=== PATIENT | female | born 1940 | race Caucasian/White ===

== ENCOUNTER 2022-03-25 20:22 | Inpatient (IN) | payer BC ==
[~2022-03-25] VITALS: Ht 165.1 cm; Wt 58.5 kg
--- NOTE | 2022-03-25 11:35 | NUR ---
RN NOTES: RECEIVED CALL FROM ER, SPOKE WITH JOSS/EMILIE, BROUGHT IN VIA AMBULANCE FROM [facility] DUE TO AMS AND DESATURATION 80% RA, A/O TO SELF ONLY, WITH MULTIPLE HEALTH ISSUES KNOWN CASE OF BREAST CA,ON NPO, STARTED ON K REPLACEMENT K LEVEL-2.9.GIVEN 1L OF FLUIDS AND RECEIVED AZITHROMAX AND ROCEPHIN IN ER, SKIN IS INTACT,RAPID TEST IS NEGATIVE Addendum: 03/26/22 at 1718 by JESIKA SMITH RN TIME CORRECTION: REPORT FROM ER RECEIVED AT 3131 NOT [id number].
--- NOTE | 2022-03-25 20:23 | NUR ---
[id number]. ALTERED MENTAL STATUS. LKWT: 1430. REPORTED O2 SAT 80% BY RA ON 4LPM SATTING @ 99% PATIENT RESPONSIVE TO PAIN. CONNECTED PATIENT TO POX AND MONITOR. SAFETY MEASURES IN PLACE
[2022-03-25] MEDS ORDERED: IV NS 0.9% 1,000 ML BAG IV ONE (20:30)
--- NOTE | 2022-03-25 20:33 | NUR ---
RAC #18G S/L BLOOD AND COVID ANTIGEN SWAB COLLECTED AND SENT TO LAB
--- NOTE | 2022-03-25 20:36 | NUR ---
EMT AT BEDSIDE FOR EKG
--- NOTE | 2022-03-25 20:45 | NUR ---
ENERGY RATER AT PT'S BEDSIDE
--- NOTE | 2022-03-25 20:45 | NUR ---
PT TAKEN TO CT VIA IRINEO
[2022-03-25 20:46] LABS: HEMATOCRIT 41 % (33-45); LYMPHOCYTES # (AUTO) 0.6 K/uL (0.8-4.8); LYMPHOCYTES % (AUTO) 3.6 % (20.0-44.0); MEAN CORPUSCULAR HGB CONC 32 g/dl (31.0-36.0); MEAN CORPUSCULAR VOLUME 86 fL (82-100); MONOCYTES # (AUTO) 0.7 K/uL (0.1-1.30); MONOCYTES % (AUTO) 3.8 % (2.0-12.0); NEUTROPHILS % (AUTO) 92.6 % (43.0-81.0); PLATELET COUNT (AUTO) 226 K/uL (150-450); RED BLOOD CELL COUNT(AUTO) 4.74 MIL/uL (4.0-5.2); WHITE BLOOD COUNT (AUTO) 17.3 K/uL (4.3-11.0)
--- NOTE | 2022-03-25 20:52 | NUR ---
PT RETURNED TO ER BED [address]
--- NOTE | 2022-03-25 20:52 | NUR ---
RT AT PT'S BEDSIDE
[2022-03-25 21:05] LABS: ABG PCO2 32.7 mmHg (35.0-45.0); ABG PO2 57.9 mmHg (75.0-100.0); MetHb 0.3 % (0.0-1.5); O2Hb 90.2 % (94.0-97.0); SITE, ABG Right Radial; VENT MODE, BG Room Air
[2022-03-25] MEDS ORDERED: CEFTRIAXONE 1GM BAG (ER ONLY) 50 ML IV ONE ×2 (21:30→21:34)
[2022-03-25] MEDS ORDERED: AZITHROMYCIN 500 MG in IV D5W 250 ML IV ONE (21:30)
--- NOTE | 2022-03-25 21:32 | NUR ---
Updated Dora (Daughter) [phone]
[2022-03-25] MEDS ORDERED: AZITHROMYCIN 500 MG VIAL ONE (21:34)
--- NOTE | 2022-03-25 21:41 | NUR ---
PCR COVID SWAB COLLECTED AND SENT TO LAB
--- NOTE | 2022-03-25 21:45 | NUR ---
CRITICAL: LAZARA 2.03 MD MADE AWARE
--- NOTE | 2022-03-25 22:00 | NUR ---
LARGE BM NOTED. PT KEPT CLEAN AND DRY. SKIN INTACT.
--- NOTE | 2022-03-25 22:07 | NUR ---
URINE COLLECTED AND SENT TO LAB
[2022-03-25 22:11] LABS: BAND % (MANUAL) 7 % (0.0-5.0); LYMPHOCYTES % (MANUAL) 3 % (16-48); MONOCYTES % (MANUAL) 3 % (0-11.0); NEUTROPHILS % (MANUAL) 87 (42-76)
--- NOTE | 2022-03-25 22:27 | NUR ---
KACEY LAWRENCE MATERIALS DEVELOPMENT ENGINEER AT PT BEDSIDE
[2022-03-25 22:41] LABS: ALANINE AMINOTRANSFERASE 38 U/L (12-78); ALBUMIN 3.3 g/dL (3.4-5.0); ALKALINE PHOSPHATASE 123 U/L (46-116); BILIRUBIN,DIRECT 0.2 mg/dL (0.0-0.2); BILIRUBIN,TOTAL 0.8 mg/dL (0.2-1.0); CARBON DIOXIDE 30 mmol/L (21-32); CHLORIDE 99 mmol/L (98-107); CREATININE 1.3 mg/dL (0.6-1.3); GLUCOSE 145 mg/dL (74-106); POTASSIUM 2.9 mmol/L (3.5-5.1); SODIUM SERUM 137 mmol/L (136-145); TOTAL PROTEIN, SERUM 7.9 g/dL (6.4-8.2); UREA NITROGEN, BLOOD 21 mg/dL (7-18)
[2022-03-25] MEDS ORDERED: LETR2.5T PO (22:48)
[2022-03-25] MEDS ORDERED: MAGN400T30 PO (22:48)
[2022-03-25] MEDS ORDERED: GABA-532 PO (22:48)
[2022-03-25] MEDS ORDERED: FERR325T23 PO (22:48)
[2022-03-25] MEDS ORDERED: LOSA1TAB15 PO (22:48)
[2022-03-25] MEDS ORDERED: HYDR-3976 PO (22:48)
[2022-03-25] MEDS ORDERED: CYPR4TAB44 PO (22:48)
[2022-03-25 22:56] LABS: ASPARTATE AMINOTRANSFERASE 34 U/L (15-37); CALCIUM, SERUM 9.1 mg/dL (8.5-10.1)
[2022-03-25] MEDS ORDERED: ACETAMINOPHEN 325 MG TABLET PO PRN (23:00)
[2022-03-25] MEDS ORDERED: MAGNESIUM HYDROXIDE 30 ML UDC PO PRN (23:00)
[2022-03-25] MEDS ORDERED: ZOLPIDEM TARTRATE 5 MG TABLET PO PRN (23:00)
[2022-03-25] MEDS ORDERED: ONDANSETRON HCL/PF 4 MG/2 ML VIAL IVP PRN (23:00)
[2022-03-25] MEDS ORDERED: MAG HYDROX/AL HYDROX/SIMETH 30 ML UDC PO PRN (23:00)
[2022-03-25] MEDS ORDERED: Z GUARD REMEDY 4 OZ OINT TP PRN (23:00)
[2022-03-25] MEDS ORDERED: POTASSIUM CHLORIDE 10 MEQ/50 ML PREMIXED IVPB FOR PERIPHERAL LINE IV ONE (23:00)
[2022-03-25] MEDS ORDERED: POTASSIUM CL. PREMIX PERIPHER. 100 ML ONE (23:12)
--- NOTE | 2022-03-25 23:17 | NUR ---
INITITATED POTASSIUM 10MEQ (BAG 1/) @ 50ML/HR TO RAC #18G S/L
--- NOTE | 2022-03-25 23:34 | NUR ---
Updated Dora (Daughter) [phone] on PT transferring to [facility]. Full Code per Dora WHITNEY
--- NOTE | 2022-03-25 23:41 | NUR ---
Rochelle valle in [facility] - 03/26/22 at 0041 by NAVEEN GAVE REPORT TO SANA KENNEDY
--- NOTE | 2022-03-25 23:41 | NUR ---
REPORT GIVEN TO JESIKA MERCADO RN FOR JAYLAN
[2022-03-25 23:43] LABS: BILIRUBIN,URINE NEGATIVE (NEGATIVE); COLOR,URINE YELLOW (YELLOW); LEUKOCYTE ESTERASE ,URINE NEGATIVE (NEGATIVE); NITRITE, URINE NEGATIVE (NEGATIVE); PROTEIN,URINE NEGATIVE (NEGATIVE); UGLUCOSE NEGATIVE (NEGATIVE); UROBILINOGEN,URINE 0.2 EU/dL (0.2)
[2022-03-25 23:56] LABS: BACTERIA,URINE Rare /HPF (None Seen); RBC,URINE 0-2 /HPF (0-2); SQUAMOUS EPITHELIAL CELL,UR Few /HPF (None Seen); WBC,URINE 0-2 /HPF (0-3)
--- NOTE | 2022-03-26 00:17 | NUR ---
POTASSIUM 10MEQ (BAG 2/4) @ 50ML/HR TO RAC #18G S/L.
--- NOTE | 2022-03-26 00:40 | NUR ---
RN NOTES: -RECEIVED ER ENDORSEMENT FROM JOSS/RN AT 2335 -PATIENT BROUGHT IN FROM ER TO O VIA GURNEY ACCOMPANIED BY 2 STAFF ON TELE MONITOR, WITH O2 INHALATION AT 3-4L/MIN VIA NC, NON VERBAL SINCE ARRIVAL, ASLEEP AND LOOKS WEAK,SHE NEVER OPEN HER EYES, SPONGE RENDERED, CLEAN AND CHANGE, SHE HAD BM(FORMED STOOL BROWNISH IN COLOR WITH FOUL SMELL) AND PASS URINE, ON IV CANNULA RAC G#18 AND LAC#20, 2ND BAG OF KCL 10 mEq ONGOING. ON NPO, ASPIRATION PRECAUTION OBSERVED.SHE IS FEBRILE 101.6, BODY SPONGE RENDERED.
--- NOTE | 2022-03-26 00:42 | NUR ---
PT TRANSFERRED TO [facility] VIA ACLS PROTOCOL WITH O2 3LPM VIA N/C. VSS. ALL BELONGINGS WITH PT.
--- NOTE | 2022-03-26 00:45 | NUR ---
RN NOTES: BODY ASSESSMENT DONE: 1)RLE-NON BLANCHABLE REDNESS 2)RIGHT BUTTOCKS, SKIN DISCOLORATION BROWNISH IN COLOR 3)LEFT FOOT-- ON THE LEFT ANKLE AREA WITH OPEN WOUND. 4) EDEMA RLE(+) LLE(+) BOTH LOWER EXTREMITY ELEVATED
[2022-03-26] MEDS ORDERED: VANCOMYCIN 1.25 GM in IV D5W 250 ML IV ONE (01:00)
[2022-03-26] MEDS: POTASSIUM CHLORIDE 10 MEQ/50 ML PREMIXED IVPB FOR PERIPHERAL LINE IV SCH ×4 (01:00→02:31)
--- NOTE | 2022-03-26 01:00 | NUR ---
RN NOTES: UNABLE TO ASSESS SWALLOWING, SHE HAS ALTERED MENTAL STATUS AND LETHARGIC,ASLEEP MOST OF THE TIME.
--- NOTE | 2022-03-26 01:00 | NUR ---
RN NOTES: WHILE PATIENT WAS TRANSPORTED FROM ER TO THE UNIT, SHE ALREADY RECEIVED 1ST BAG OF K-10mEQ, THEN 2ND BAG IS ONGOING PER RN ENDORSEMENT. -VERIFY WITH RN/CONSTANTIN REGARDING THE ORDER SHE SAID 2 MORE BAGS IS PENDING TO COMPLETE TOTAL OF 4 BAGS. WILL DOUBLE CHECK ORDER VERIFICATION WITH DR. ERAZO. Addendum: 03/26/22 at 0236 by JESIKA SMITH RN VERIFICATION OF ORDER: POTASSIUM CHLORIDE 10mEq 1ST BAG GIVEN IN ER AND 2ND BAG IS ONGOING.
--- NOTE | 2022-03-26 01:00 | NUR ---
TOTAL OF 4 BAGS-40 MEQ GIVEN 2 BAGS GIVEN IN ER AND 2 BAGS IN DUO
--- NOTE | 2022-03-26 01:15 | NUR ---
RN NOTES: NOTIFIED PATIENT HAS FEVER, SHE LOOKS LETHARGIC, ASLEEP MOST OF THE TIME, AND NON VERBAL, ON NPO REQUEST FOR TYLENOL SUPP FOR FEVER,AGREED UPON BY DR. ERAZO. -RESIDENT HAD A LARGE AMOUNT OF BM, CLEAN AND CHANGE AT 0117 TYLENOL 650MG SUPP GIVEN FOR FEVER.
[2022-03-26] MEDS: IV NS 0.9% 1,000 ML IV PRN ×2 (01:24→20:16)
[2022-03-26] MEDS ORDERED: ACETAMINOPHEN 650 MG/SUPP.RECT RC PRN (02:00)
--- NOTE | 2022-03-26 02:00 | NUR ---
TOTAL OF 4 BAGS-40 MEQ GIVEN 2 BAGS GIVEN IN ER AND 2 BAGS IN DUO
--- NOTE | 2022-03-26 02:16 | NUR ---
RN NOTES: -NOTIFIED DR. ERAZO THAT PATIENT RECEIVED 2 BAGS=20 mEQ OF POTASSIUM FROM ER,VERIFIED IF HOW MANY BAGS MORE DO WE NEED TO GIVE IN DUO, SHE VERIFIED A TOTAL OF 4 BAGS, 2 MORE BAGS WILL BE GIVEN IN DUO. -3RD BAG OF K=10mEQ WAS GIVEN AT 0120AM Addendum: 03/26/22 at 0236 by JESIKA SMITH RN VERIFICATION OF ORDER: POTASSIUM CHLORIDE 10mEq WAS GIVEN TOTAL OF 2 BAGS=20 mEq FROM ER AND 2 MORE BAGS WILL BE GIVEN IN DUO TO COMPLETE A TOTAL OF 4 BAGS=40 mEq.
--- NOTE | 2022-03-26 02:32 | NUR ---
RN NOTES: -4TH BAG OF POTASSIUM CHLORIDE 10mEq STARTED, A TOTAL OF 4 BAG GIVEN EQUAL TO TOTAL OF 40 mEQ.
[2022-03-26 04:00] VITALS: BP 112/65
--- NOTE | 2022-03-26 04:51 | NUR ---
RN NOTES: ON TELE MONITOR , SR RATE-70'S, REPOSITIONED, ASLEEP MOST OF THE TIME,SAFETY PRECAUTION OBSERVED, KEPT ON CLOSE WATCH.
--- NOTE | 2022-03-26 06:00 | NUR ---
RN NOTES: -VANCO 1.25 GRAM STARTED.
[2022-03-26] MEDS ORDERED: VANCOMYCIN 1 GM VIAL ONE (06:23)
[2022-03-26] MEDS ORDERED: VANCOMYCIN 500 MG VIAL ONE (06:27)
[2022-03-26] MEDS ORDERED: CEFEPIME 1 GM VIAL ONE (06:28)
--- NOTE | 2022-03-26 07:16 | NUR ---
RN NOTES: -CEFIPIME 1 GRAM STARTED
--- NOTE | 2022-03-26 07:40 | NUR ---
RN NOTES: ASLEEP IN BED, SHE OPEN HER EYES WHEN HER NAME IS CALLED, REMAIN IN SR RATE-80;S, NON LABORED BREATHING ,AFEBRILE-98.6, TURNING AND REPOSITIONING DONE,KEPT ON CLOSE WATCH, NEEDS ATTENDED, ENDORSED TO COMPLETE IV/ATB, STILL ONGOING.NON LABORED BREATHING,IVF CONTINUE, FOR F/U URINALYSIS, FOR ID CONSULT,F/U BLOOD C/S RESULT, SIXTO SPOKE WITH IN ER, SHE IS FULL CODE,ENDORSED FOR CONTINUITY OF CARE.
[2022-03-26 07:52] LABS: HEMATOCRIT 36 % (33-45); HEMOGLOBIN 11.4 g/dL (11.5-14.8); MEAN CORPUSCULAR HGB CONC 32 g/dl (31.0-36.0); MEAN CORPUSCULAR VOLUME 86 fL (82-100); NEUTROPHILS % (AUTO) 84.4 % (43.0-81.0); PLATELET COUNT (AUTO) 204 K/uL (150-450); RED BLOOD CELL COUNT(AUTO) 4.12 MIL/uL (4.0-5.2); WHITE BLOOD COUNT (AUTO) 18.1 K/uL (4.3-11.0)
[2022-03-26 07:53] LABS: BASOPHILS % (AUTO) 0.1 % (0.0-2.0); LYMPHOCYTES % (AUTO) 5.6 % (20.0-44.0); MONOCYTES # (AUTO) 1.8 K/uL (0.1-1.30); MONOCYTES % (AUTO) 9.9 % (2.0-12.0); NEUTROPHILS # (AUTO) 15.3 K/uL (1.8-8.9)
[2022-03-26 08:00] VITALS: BP 111/56
[2022-03-26] MEDS ORDERED: CEFEPIME 1 GM in IV D5W 50 ML IV ONE ×3 (08:01)
[2022-03-26 08:04] LABS: CALCIUM, SERUM 8.2 mg/dL (8.5-10.1); CARBON DIOXIDE 28 mmol/L (21-32); CHLORIDE 103 mmol/L (98-107); CREATININE 1.1 mg/dL (0.6-1.3); GLUCOSE 138 mg/dL (74-106); MAGNESIUM 1.9 mg/dL (1.8-2.4); PHOSPHORUS 3.3 mg/dL (2.5-4.9); POTASSIUM 3.6 mmol/L (3.5-5.1); SODIUM SERUM 139 mmol/L (136-145); UREA NITROGEN, BLOOD 20 mg/dL (7-18)
[2022-03-26] MEDS: GABAPENTIN 100 MG CAPSULE PO SCH ×2 (09:00→17:00)
[2022-03-26] MEDS: LETROZOLE 2.5 MG TABLET PO SCH (09:00)
[2022-03-26] MEDS: FERROUS SULFATE (325 MG) 325 MG/TAB TABLET PO SCH (09:00)
[2022-03-26] MEDS: LOSARTAN/HCTZ 50-12.5MG/ 1 EA TABLET PO SCH (09:00)
[2022-03-26] MEDS ORDERED: CYPROHEPTADINE HCL 4 MG TABLET PO SCH (09:00)
[2022-03-26] MEDS: MAGNESIUM OXIDE 400 MG TABLET PO SCH (09:00)
[2022-03-26] MEDS: HYDROCODONE/APAP 7.5/325MG 1 EACH TABLET PO SCH ×3 (09:00→17:00)
[2022-03-26] MEDS: APIXABAN 5 MG TABLET PO SCH ×2 (09:00→17:00)
[2022-03-26 12:00] VITALS: BP 115/62
[2022-03-26 16:00] VITALS: BP 130/103
--- NOTE | 2022-03-26 18:37 | NUR ---
RN NOTE PT NSG SWALLOW EVAL DONE. PT ABLE TO TOLERATE THIN FLUIDS AND PUREE FOOD. MADE AWARE, WITH T.O. TO CHANGE DIET TO PUREE.
--- NOTE | 2022-03-26 19:30 | NUR ---
WINDING LATHE OPERATOR OPENING NOTE RECEIVED PT IN BED, A/O X 3, VERBALLY RESPONSIVE. CURRENTLY ON O2 THERAPY VIA NC 4LPM, TOLERATING WELL. PT SHOWING NO S/SX OF ACUTE DISTRESS NOTED AT THIS TIME. IV ACCESS NOTED IN RAC AND LAC WITH NS RUNNING @ 100 CC/HR. BOTH PATENT AND INTACT. ALL SAFETY MEASURES IN PLACE: BED LOCKED IN LOW POSITION, BED ALARM ON. CALL LIGHT WITHIN REACH. WILL CONTINUE TO MONITOR PT. MAINTAINED.
--- NOTE | 2022-03-26 19:41 | NUR ---
RN NOTES PT RESTING IN BED, AWAKE ALERT AND VERBALLY RESPONSIVE. NON LABORED BREATHING , FEBRILE- T 100.6, PRN TYLENOL GIVEN. WILL CONT TO MONITOR AND ENDORSE TO NEXT RN. IN NASAL CANULA 4L, TOLERATING WELL. WITH IV ACCESS ON RAC AND LAC WITH IVF TOLERATING WELL. DUE MEDS GIVEN. NEEDS ATTENDED. SAFETY MEASURES MAINTAINED.
[2022-03-26 20:00] VITALS: BP 135/86
[2022-03-26] MEDS: CEFEPIME 2 GM in IV D5W 100 ML IV SCH (20:16)
[2022-03-26] MEDS ORDERED: HYDROCODONE/APAP 5/325MG TABLET PO PRN (21:00)
--- NOTE | 2022-03-26 23:15 | NUR ---
RN NOTE PT IN BED RESTING COMFORTABLY. VS STABLE. DENIES ANY PAIN. WILL CONTINUE TO MONITOR.
[2022-03-27] VITALS: BP 129/64
--- NOTE | 2022-03-27 03:10 | NUR ---
RN NOTE PT PULLED OUT HER IV LINE IN THE LAC.
[2022-03-27 04:00] VITALS: BP 151/78
--- NOTE | 2022-03-27 05:19 | NUR ---
RN NOTE ALL DUE MEDS GIVEN. NEEDS ATTENDED TO. AM/PM CARE DONE. PT STILL DENIES ANY PAIN. VS STABLE. WILL ENDORSE TO AM SHIFT NURSE FOR JAYLAN.
[2022-03-27] MEDS ORDERED: VANCOMYCIN 1.25 GM in IV D5W 250 ML IV SCH (06:00)
[2022-03-27 06:54] LABS: CALCIUM, SERUM 8.2 mg/dL (8.5-10.1); POTASSIUM 3.3 mmol/L (3.5-5.1)
--- NOTE | 2022-03-27 07:30 | NUR ---
RN/TELE OPENING NOTE REPORT RECEIVED FROM VEGETABLE CUTTER NURSE. PATIENT AWAKE AND ALERT A&OX2-3. ALL VSS. PATIENT SATTING AT 99% ON 3L NC. SR. DIET CARDIAC PUREE. IV RAC #20G PATENT, INTACT, AND FLUSHED WITH NS. ALL SAFETY FALL PRECAUTIONS IN PLACE BED LOCK ON, BED ALARM ON, BED IN LOWEST POSITION, SIDE RAILS UP, CALL LIGHT WITHIN REACH. WILL CONTINUE TO MONITOR.
[2022-03-27 08:00] VITALS: BP 124/66
[2022-03-27 08:28] LABS: BASOPHILS % (AUTO) 0.1 % (0.0-2.0); EOSINOPHILS % (AUTO) 0.3 % (0.0-6.0); HEMATOCRIT 37 % (33-45); HEMOGLOBIN 11.7 g/dL (11.5-14.8); LYMPHOCYTES # (AUTO) 1.1 K/uL (0.8-4.8); LYMPHOCYTES % (AUTO) 7.3 % (20.0-44.0); MEAN CORPUSCULAR HGB CONC 32 g/dl (31.0-36.0); MEAN CORPUSCULAR VOLUME 87 fL (82-100); MONOCYTES % (AUTO) 6.5 % (2.0-12.0); NEUTROPHILS # (AUTO) 13.4 K/uL (1.8-8.9); NEUTROPHILS % (AUTO) 85.8 % (43.0-81.0); PLATELET COUNT (AUTO) 199 K/uL (150-450); RED BLOOD CELL COUNT(AUTO) 4.22 MIL/uL (4.0-5.2); WHITE BLOOD COUNT (AUTO) 15.6 K/uL (4.3-11.0)
[2022-03-27] MEDS: FERROUS SULFATE (325 MG) 325 MG/TAB TABLET PO SCH (08:53)
[2022-03-27] MEDS: MAGNESIUM OXIDE 400 MG TABLET PO SCH (08:53)
[2022-03-27] MEDS: APIXABAN 5 MG TABLET PO SCH ×2 (08:54→17:50)
[2022-03-27] MEDS: GABAPENTIN 100 MG CAPSULE PO SCH ×2 (08:56→17:49)
[2022-03-27] MEDS: LETROZOLE 2.5 MG TABLET PO SCH (08:56)
[2022-03-27] MEDS: LOSARTAN/HCTZ 50-12.5MG/ 1 EA TABLET PO SCH (08:56)
[2022-03-27] MEDS ORDERED: POTASSIUM CHLORIDE 20 MEQ TAB.PRT.SR PO SCH (09:00)
[2022-03-27] MEDS: CEFEPIME 2 GM in IV D5W 100 ML IV SCH ×2 (09:18→21:20)
[2022-03-27 09:45] LABS: ALBUMIN 3.5 g/dL (3.4-5.0); BILIRUBIN,TOTAL 0.7 mg/dL (0.2-1.0); CALCIUM, SERUM 9.2 mg/dL (8.5-10.1); CREATININE 1.3 mg/dL (0.6-1.3); POTASSIUM 3.8 mmol/L (3.5-5.1); TOTAL PROTEIN, SERUM 7.9 g/dL (6.4-8.2)
[2022-03-27 12:00] VITALS: BP 147/74
[2022-03-27] MEDS: IV NS 0.9% 1,000 ML IV PRN (12:38)
--- NOTE | 2022-03-27 15:51 | NUR ---
PROCALCITONIN 2.41 MD NOTIFIED.
[2022-03-27 16:00] VITALS: BP 173/97
--- NOTE | 2022-03-27 16:30 | NUR ---
RN NOTE PATIENT'S DAUGHTER CAME TO VISIT THE PATIENT, SHE WAS MAD SHE COUND NOT COME IN AND SHE STARTED TO DEMAND WE PUT HER MOMS PHONE ON SPEAKER EVEN THOUGH HER MOTHER KEPT 5TURNING IT OFF. WHEN THE PLUSH BRUSHER WENT INTO THE ROOM TO HELP THE DAUGHTER STARTED TO CURSE AT HER USING THE F WORK MANY TIMES.
--- NOTE | 2022-03-27 18:56 | NUR ---
RN NOTE ALL CARE ENDORSED TO THE ANESTHESIOLOGY PHYSICIAN ASSISTANT NURSE.
[2022-03-27 20:00] VITALS: BP 158/79
--- NOTE | 2022-03-27 20:00 | NUR ---
COLLECTIONS ATTORNEY NOTE PT IN BED AWAKE. A/O X 3, NO SOB, NO DISTRESS OR DISCOMFORT NOTED. DENIES PAIN. ON 3L VIA N/C O2 SAT 99%. IVF NS INFUSING AT 100 ML/HR, NO S/S OF INFILTRATION NOTED. PT REMAIN IN ISOLATION FOR PCR SUSPECTED. WAITING FOR PCR RESULT. RAPID IS NEGATIVE. ISOLATION PRECAUTIONE TAKEN. KEPT HER DRY AND CLEAN. ALL NEEDS ATTENDED. KEPT HER DRY AND CLEAN. VSS. CONTINUE TO MONITOR HER. Addendum: 03/27/22 at 2103 by JESUS MUKHERJEE RN ON TELE SR WITH PAC AND ELEVATED T WAVE HR 78
[2022-03-28] VITALS: BP 169/82
[2022-03-28 04:00] VITALS: BP 164/86
--- NOTE | 2022-03-28 06:00 | NUR ---
SPLICING SUPERVISOR NOTE NOTED PT SLIDING DOWN FROM BED, STATES "I WANT TO GET UP". WITH THE HELP OF SUPERVISOR CALIBRATION BROUGHT PT BACK IN BED. NO FALLS OR INJURY NOTED. REMINDED PT TO USE CALL LIGHT IF NEEDED ANYTHING. PT STATES "OK"
--- NOTE | 2022-03-28 06:30 | NUR ---
GEODETIC TECHNICIAN NOTE REMINDED LAB FOR VANCO T RESULT WHICH IS STILL PENDING. WILL ENDORSE TO DAY SHIFT NURSE FOR CONTINUE TO CARE AND FOLLOW UP.
[2022-03-28 06:59] LABS: BASOPHILS % (AUTO) 0.2 % (0.0-2.0); EOSINOPHILS % (AUTO) 0.5 % (0.0-6.0); HEMATOCRIT 39 % (33-45); HEMOGLOBIN 12.6 g/dL (11.5-14.8); LYMPHOCYTES # (AUTO) 1.2 K/uL (0.8-4.8); LYMPHOCYTES % (AUTO) 8.4 % (20.0-44.0); MEAN CORPUSCULAR HGB CONC 32 g/dl (31.0-36.0); MEAN CORPUSCULAR VOLUME 87 fL (82-100); MONOCYTES # (AUTO) 0.7 K/uL (0.1-1.30); MONOCYTES % (AUTO) 5.1 % (2.0-12.0); NEUTROPHILS # (AUTO) 12.7 K/uL (1.8-8.9); NEUTROPHILS % (AUTO) 85.8 % (43.0-81.0); PLATELET COUNT (AUTO) 222 K/uL (150-450); RED BLOOD CELL COUNT(AUTO) 4.52 MIL/uL (4.0-5.2); WHITE BLOOD COUNT (AUTO) 14.8 K/uL (4.3-11.0)
[2022-03-28 07:22] LABS: ALBUMIN 2.3 g/dL (3.4-5.0); BILIRUBIN,TOTAL 0.4 mg/dL (0.2-1.0); CALCIUM, SERUM 8.6 mg/dL (8.5-10.1); CREATININE 0.8 mg/dL (0.6-1.3); POTASSIUM 3.5 mmol/L (3.5-5.1); TOTAL PROTEIN, SERUM 6.7 g/dL (6.4-8.2)
--- NOTE | 2022-03-28 07:30 | NUR ---
answering service telephone operator opening note patient is in bed awake. patient is alert and oriented x3.no signs of pain or discomfort at this time. patient. has iv fluids running at 100 ml/hr. patient has iv site on right ac.iv patent and flushing well. all safety precautions in place. call light within reach. bedside table next to patient. side rails x2. will continue to assess throughout shift
[2022-03-28 08:00] VITALS: BP 158/83
[2022-03-28] MEDS: MAGNESIUM OXIDE 400 MG TABLET PO SCH (09:18)
[2022-03-28] MEDS: CEFEPIME 2 GM in IV D5W 100 ML IV SCH ×2 (09:18→20:46)
[2022-03-28] MEDS: FERROUS SULFATE (325 MG) 325 MG/TAB TABLET PO SCH (09:18)
[2022-03-28] MEDS: GABAPENTIN 100 MG CAPSULE PO SCH ×2 (09:18→17:34)
[2022-03-28] MEDS: LETROZOLE 2.5 MG TABLET PO SCH (09:19)
[2022-03-28] MEDS: LOSARTAN/HCTZ 50-12.5MG/ 1 EA TABLET PO SCH (09:19)
[2022-03-28] MEDS: APIXABAN 5 MG TABLET PO SCH ×2 (09:20→17:35)
[2022-03-28] MEDS: IV NS 0.9% 1,000 ML IV PRN (09:30)
[2022-03-28] MEDS: VANCOMYCIN HCL 0.75 GM in IV D5W 250 ML IV SCH ×2 (11:11→21:23)
[2022-03-28 12:00] VITALS: BP 155/72
[2022-03-28 16:00] VITALS: BP 167/82
--- NOTE | 2022-03-28 19:48 | NUR ---
telegraphic typewriter operator closing note patient is in bed awake. patient is alert and oriented x3.no signs of pain or discomfort at this time. patient. has iv fluids running normal saline at 100 ml/hr. right ac iv line came off.patient has new iv site on right upper arm. iv intact and flushing well.kept clean and dry.all needs met.all safety precautions in place. bed locked and at lowest position.call light within reach. bedside table next to patient. side rails x2. will endorse to date night caregiver rn
[2022-03-28 20:00] VITALS: BP 167/85
--- NOTE | 2022-03-28 20:00 | NUR ---
DESK CLERK NOTE PT IN BED AWAKE. A/O X 3, NO SOB, NO DISTRESS OR DISCOMFORT NOTED. DENIES PAIN. ON TELE SR WITH PAC/PVC HR 82. IVF NS INFUSING AT 100 ML/HR JOIE #20 G, NO S/S OF INFILTRATION NOTED. KEPT HER DRY AND CLEAN. ALL NEEDS ATTENDED. VSS. CONTINUE TO MONITOR HER.
[2022-03-29] VITALS: BP 136/58
--- NOTE | 2022-03-29 01:26 | NUR ---
SPA DIRECTOR/FINANCE NOTE KACEY LAWRENCE INFORMED REGARDING PT US LOWER EXT RESULT, AND PT ON ELIQUIS 5 MG BID, HOWARD INFORMATION ASSURANCE ENGINEER GAVE NEW ORDER, ORDER NOTED AND CARRIED OUT
[2022-03-29 04:00] VITALS: BP 163/60
[2022-03-29] MEDS ORDERED: ENOXAPARIN SODIUM 60 MG/0.6 ML DISP.SYRIN SQ ONE (05:00)
[2022-03-29] MEDS: IV NS 0.9% 1,000 ML IV PRN (05:54)
[2022-03-29 08:00] VITALS: BP 158/72
--- NOTE | 2022-03-29 08:08 | NUR ---
FEED INSPECTION SUPERVISOR NOTE PT IN BED AWAKE. A/O X 3, NO SOB, NO DISTRESS OR DISCOMFORT NOTED. DENIES PAIN. ON TELE SR WITH HR 82. IVF NS INFUSING AT 100 ML/HR JOIE #20 G, NO S/S OF INFILTRATION NOTED. KEPT HER DRY AND CLEAN. ALL NEEDS ATTENDED.BED IN LOWEST AND LOCKED POSITION , CALL LIGHT WITHIN REACH
[2022-03-29] MEDS: CEFEPIME 2 GM in IV D5W 100 ML IV SCH ×2 (08:32→20:53)
[2022-03-29] MEDS: GABAPENTIN 100 MG CAPSULE PO SCH ×2 (08:34→16:22)
[2022-03-29] MEDS: LETROZOLE 2.5 MG TABLET PO SCH (08:35)
[2022-03-29] MEDS: MAGNESIUM OXIDE 400 MG TABLET PO SCH (08:36)
[2022-03-29] MEDS: FERROUS SULFATE (325 MG) 325 MG/TAB TABLET PO SCH (08:36)
[2022-03-29] MEDS: LOSARTAN/HCTZ 50-12.5MG/ 1 EA TABLET PO SCH (08:37)
[2022-03-29] MEDS: VANCOMYCIN HCL 0.75 GM in IV D5W 250 ML IV SCH ×2 (09:27→21:43)
[2022-03-29] MEDS: CYPROHEPTADINE HCL 4 MG TABLET PO SCH ×3 (09:53→16:22)
--- NOTE | 2022-03-29 10:35 | NUR ---
relay telegrapher note patient in bed , all needs attendee keep clean dry , call light within reach
--- NOTE | 2022-03-29 11:30 | NUR ---
telecommunications field technician note called to dr Genaro Welsh dnp notified that Lovenox was given yesterday and per Radha tam held eliquis, was held ,us for exterminates done yesterday and rt femoral thrombus, patient on eliquis bid ,ordered to cont eliquis as ordered
[2022-03-29 12:00] VITALS: BP 155/74
--- NOTE | 2022-03-29 14:16 | NUR ---
teletype installer note reported to dr Genaro Welsh dnp notified that patient wants ti talk with her stated that will do it
[2022-03-29 16:00] VITALS: BP 134/70
[2022-03-29] MEDS: APIXABAN 5 MG TABLET PO SCH (16:23)
[2022-03-29] MEDS ORDERED: APIXABAN 5 MG TABLET PO SCH (17:00)
--- NOTE | 2022-03-29 17:01 | NUR ---
telecom coordinator note rounds made , all needs attended ,cont on ivf as ordeed ,not in distress ,on ra ,no sob noted at this time
--- NOTE | 2022-03-29 18:37 | NUR ---
FLORIST DESIGNER NOTE PER PATIENT AND FAMILY PATIENT WANTS TO HAVE PT EVAL , ALSO PER LORELEI KAY WANT TO BE CALLED BY CUB REPORTER AND USE [facility] [phone], WILL ENDORSE NEXT SHIFT RN AND CHARGE NURSE
--- NOTE | 2022-03-29 18:41 | NUR ---
CONVERTING SUPERVISOR NOTE PATIENT IN BED , ALL NEEDS ATTENDED ,ON RA ,NO SOB NOTED AT THIS TIME,ON IVF ORDERED,BED IN LOWEST AND LOCKED POSITION , WILL CONT TO MONITOR, SAFETY MEASURE IMPLEMENTED
--- NOTE | 2022-03-29 19:20 | NUR ---
BIN OPERATOR OPENING NOTE RECEIVED PATIENT IN BED A/OX3, ON RA TOLERATING WELL, NO S/S OF DISTRESS, TELE MONITOR READING SR W/PVC & PAC, HR 88. IV ACCESS RAC #20 RUNNING NS 100ML/HR. INTACT AND PATENT. DENIES PAIN AT THIS TIME. ALL SAFETY MEASURES IN PLACE. WILL CONTINUE TO MONITOR.
[2022-03-29 20:00] VITALS: BP 134/65
[2022-03-30] VITALS: BP 124/47
[2022-03-30 04:00] VITALS: BP 151/83
--- NOTE | 2022-03-30 06:59 | NUR ---
TEAROOM HOSTESS CLOSING NOTE RECEIVED PATIENT IN BED A/OX3, ON RA TOLERATING WELL, NO S/S OF DISTRESS, TELE MONITOR READING SR W/PVC & PAC, HR 88. IV ACCESS RAC #20 RUNNING NS 100ML/HR. INTACT AND PATENT. DENIES PAIN AT THIS TIME. ALL SAFETY MEASURES IN PLACE. ALL DUE MEDS GIVEN. WILL ENDORSE TO MORNING SHIFT.
--- NOTE | 2022-03-30 07:30 | NUR ---
PROPELLANT CHARGE LOADER opening NOTE patient is alert and oriented x3. patient tolerating well on room air. no signs of distress or pain at this time. patient is currently sinus rhytm with pvc.patient skin intact. patient has right forearm 20 guage. patient has right forearm ac 20 guage normal saline running at 100ml. iv patent and flushing well. ALL SAFETY MEASURES IN PLACE. call light within reach.bed locked at lowest position. side rails up x2. bedside table next to patient. will continue to assess throughout shift
[2022-03-30 07:35] LABS: BASOPHILS % (AUTO) 0.3 % (0.0-2.0); EOSINOPHILS % (AUTO) 1.6 % (0.0-6.0); HEMATOCRIT 42 % (33-45); HEMOGLOBIN 13.5 g/dL (11.5-14.8); LYMPHOCYTES # (AUTO) 1.8 K/uL (0.8-4.8); LYMPHOCYTES % (AUTO) 13.8 % (20.0-44.0); MEAN CORPUSCULAR HGB CONC 32 g/dl (31.0-36.0); MEAN CORPUSCULAR VOLUME 86 fL (82-100); MONOCYTES # (AUTO) 1.1 K/uL (0.1-1.30); NEUTROPHILS # (AUTO) 10.1 K/uL (1.8-8.9); NEUTROPHILS % (AUTO) 76.3 % (43.0-81.0); PLATELET COUNT (AUTO) 293 K/uL (150-450); RED BLOOD CELL COUNT(AUTO) 4.86 MIL/uL (4.0-5.2); WHITE BLOOD COUNT (AUTO) 13.3 K/uL (4.3-11.0)
[2022-03-30 08:00] VITALS: BP 161/78
[2022-03-30] MEDS: CEFEPIME 2 GM in IV D5W 100 ML IV SCH (08:27)
[2022-03-30] MEDS: FERROUS SULFATE (325 MG) 325 MG/TAB TABLET PO SCH (08:27)
[2022-03-30] MEDS: LETROZOLE 2.5 MG TABLET PO SCH (08:27)
[2022-03-30] MEDS: MAGNESIUM OXIDE 400 MG TABLET PO SCH (08:28)
[2022-03-30] MEDS: GABAPENTIN 100 MG CAPSULE PO SCH (08:28)
[2022-03-30] MEDS: CYPROHEPTADINE HCL 4 MG TABLET PO SCH (08:28)
[2022-03-30] MEDS: LOSARTAN/HCTZ 50-12.5MG/ 1 EA TABLET PO SCH (08:28)
[2022-03-30] MEDS: APIXABAN 5 MG TABLET PO SCH (08:30)
[2022-03-30 08:34] LABS: CALCIUM, SERUM 8.4 mg/dL (8.5-10.1); PHOSPHORUS 2.5 mg/dL (2.5-4.9)
[2022-03-30] MEDS: VANCOMYCIN HCL 0.75 GM in IV D5W 250 ML IV SCH (08:47)
[2022-03-30 09:14] LABS: POTASSIUM 2.7 mmol/L (3.5-5.1)
--- NOTE | 2022-03-30 10:00 | NUR ---
patient critical lab potassium 2.7.notified dr.tim gabriel.ordered KDUR 40 mg now and at 1300.
[2022-03-30] MEDS ORDERED: POTASSIUM CHLORIDE 20 MEQ TAB.PRT.SR PO SCH (10:30)
[2022-03-30 12:00] VITALS: BP 145/70
[2022-03-30] MEDS ORDERED: CYPR4TAB44 PO (12:47)
[2022-03-30] MEDS ORDERED: ACID1TAB4 PO (12:47)
[2022-03-30] MEDS ORDERED: POTA10TA10 PO (12:47)
[2022-03-30] MEDS ORDERED: APIX5TAB PO (12:47)
[2022-03-30] MEDS ORDERED: DOXY100C2 PO (12:47)
[2022-03-30] MEDS ORDERED: Potassium Chloride 20 MEQ in IV NS 0.9% 1,000 ML IV SCH (13:00)
--- NOTE | 2022-03-30 14:00 | NUR ---
gave report to [facility]. patient is on room air able to take patient
[2022-03-30] MEDS ORDERED: POTASSIUM CHLORIDE 20 MEQ TAB.PRT.SR PO ONE (15:00)
[2022-03-30 16:00] VITALS: BP 166/77
--- NOTE | 2022-03-30 17:34 | NUR ---
patient discharged.picked up ambulance. patient is alert and oriented x3. stable. patient is on room air above 95%. removed iv from right ac. all needs met.
[2022-03-30] MEDS ORDERED: VANCOMYCIN 500 MG in IV D5W 100ml IV SCH (21:00)
== END 2022-03-30 17:59 | DRG 871 ==
LOC: ER 20:27 → TELE1 23:14
PROVIDERS: ADMIT Nurse Practitioner Acute Care; ATTEND Nurse Practitioner Acute Care
DX: A41.9 Sepsis, unspecified organism (principal); G93.41 Metabolic encephalopathy; J96.01 Acute respiratory failure with hypoxia; J69.0 Pneumonitis due to inhalation of food and vomit; L03.115 Cellulitis of right lower limb; L03.116 Cellulitis of left lower limb; Z86.718 Personal history of other venous thrombosis and embolism; Z20.822 Contact with and (suspected) exposure to COVID-19; G62.9 Polyneuropathy, unspecified; I11.0 Hypertensive heart disease with heart failure; I50.9 Heart failure, unspecified; M19.90 Unspecified osteoarthritis, unspecified site; M41.9 Scoliosis, unspecified; R26.9 Unspecified abnormalities of gait and mobility; B96.89 Other specified bacterial agents as the cause of diseases classified elsewhere; E87.6 Hypokalemia; R79.89 Other specified abnormal findings of blood chemistry; F03.90 Unspecified dementia, unspecified severity, without behavioral disturbance, psychotic disturbance, mood disturbance, and anxiety; Z86.73 Personal history of transient ischemic attack (TIA), and cerebral infarction without residual deficits; E88.09 Other disorders of plasma-protein metabolism, not elsewhere classified; E78.5 Hyperlipidemia, unspecified; Z95.828 Presence of other vascular implants and grafts; Z79.899 Other long term (current) drug therapy; Z79.01 Long term (current) use of anticoagulants; Z88.1 Allergy status to other antibiotic agents; Z88.0 Allergy status to penicillin; Z88.2 Allergy status to sulfonamides; Z91.81 History of falling; Z85.3 Personal history of malignant neoplasm of breast; Z87.81 Personal history of (healed) traumatic fracture
CPT/HCPCS: 36415; 36600; 70450-TC; 71045-TC; 71250-TC; 80048-TC; 80053-TC; 80076-TC; 80202-TC; 81001; 82803-TC; 82962-TC; 83605-TC; 83735-TC; 84100-TC; 84484-TC; 85025-TC; 85730-TC; 87040-TC; 87081-TC; 87086-TC; 92526; 92611-TC; 93970-TC; 94799-TC; 97116-TC; 97530-TC; A6253; C9803; G0378; J0456; J0692; J0696; J1650; J3370; J3480; J7030; J7050; J7060; U0003

== ENCOUNTER 2023-04-15 22:01 | Inpatient (IN) | payer BC ==
[~2023-04-15] VITALS: Ht 162.6 cm; Wt 59.0 kg
[~2023-04-15 22:01] MED LIST: ACID1TAB4 PO; APIX5TAB PO; CYPR4TAB44 PO; DOXY100C2 PO; FERR325T23 PO; HYDR-3976 PO; LETR2.5T PO; LOSA1TAB15 PO; MAGN400T30 PO; POTA10TA10 PO
[2023-04-15 22:59] LABS: BASOPHILS % (AUTO) 0.1 % (0.0-2.0); EOSINOPHILS # (AUTO) 0.1 K/uL (0.0-0.7); EOSINOPHILS % (AUTO) 0.6 % (0.0-6.0); HEMATOCRIT 38 % (33-45); HEMOGLOBIN 12.3 g/dL (11.5-14.8); LYMPHOCYTES # (AUTO) 0.5 K/uL (0.8-4.8); LYMPHOCYTES % (AUTO) 2.1 % (20.0-44.0); MEAN CORPUSCULAR HEMOGLOBIN 28 PG (26.0-33.0); MEAN CORPUSCULAR HGB CONC 32 g/dl (31.0-36.0); MEAN CORPUSCULAR VOLUME 88 fL (82-100); MONOCYTES # (AUTO) 0.4 K/uL (0.1-1.30); MONOCYTES % (AUTO) 1.6 % (2.0-12.0); NEUTROPHILS # (AUTO) 22.1 K/uL (1.8-8.9); NEUTROPHILS % (AUTO) 95.6 % (43.0-81.0); PLATELET COUNT (AUTO) 411 K/uL (150-450); RED BLOOD CELL COUNT(AUTO) 4.36 MIL/uL (4.0-5.2); RED CELL DISTRIBUTION WIDTH 15.5 % (11.5-15.0); WHITE BLOOD COUNT (AUTO) 23.1 K/uL (4.3-11.0)
[2023-04-15 23:14] LABS: CALCIUM, SERUM 9.3 mg/dL (8.5-10.1); CARBON DIOXIDE 24 mmol/L (21-32); CHLORIDE 102 mmol/L (98-107); CREATININE 1.5 mg/dL (0.6-1.3); GLUCOSE 145 mg/dL (74-106); POTASSIUM 3.9 mmol/L (3.5-5.1); SODIUM SERUM 137 mmol/L (136-145); UREA NITROGEN, BLOOD 22 mg/dL (7-18)
[2023-04-15 23:20] LABS: ALANINE AMINOTRANSFERASE 67 U/L (12-78); ALBUMIN 2.9 g/dL (3.4-5.0); ALKALINE PHOSPHATASE 238 U/L (46-116); ASPARTATE AMINOTRANSFERASE 12 U/L (15-37); BILIRUBIN,DIRECT 0.1 mg/dL (0.0-0.2); BILIRUBIN,TOTAL 0.5 mg/dL (0.2-1.0); TOTAL PROTEIN, SERUM 7.7 g/dL (6.4-8.2)
[2023-04-16] MEDS ORDERED: IV NS 0.9% 1,000 ML BAG IV ONE
[2023-04-16 00:05] LABS: APPEARANCE,URINE TURBID (CLEAR); BILIRUBIN,URINE 1+ (NEGATIVE); BLOOD, URINE TRACE-INTA Ery/uL (NEGATIVE); COLOR,URINE DARK YELLOW (YELLOW); KETONES,URINE TRACE mg/dL (NEGATIVE); LEUKOCYTE ESTERASE ,URINE 2+ (NEGATIVE); NITRITE, URINE NEGATIVE (NEGATIVE); PH,URINE 5.5 (5.0-8.0); PROTEIN,URINE 1+ mg/dl (NEGATIVE); UGLUCOSE NEGATIVE (NEGATIVE)
[2023-04-16 00:08] LABS: ADD URINE CULTURE YES; BACTERIA,URINE Moderate /HPF (None Seen); SQUAMOUS EPITHELIAL CELL,UR Rare /HPF (None Seen); WBC,URINE 81-100 /HPF (0-3)
[2023-04-16] MEDS ORDERED: CEFTRIAXONE 1GM BAG (ER ONLY) 50 ML IV ONE ×2 (00:19)
[2023-04-16 01:14] LABS: LACTIC ACID 2.4 mmol/L (0.4-2.0)
[2023-04-16] MEDS ORDERED: ONDANSETRON HCL/PF 4 MG/2 ML VIAL IVP PRN (01:30)
[2023-04-16] MEDS ORDERED: Z GUARD REMEDY 4 OZ OINT TP PRN (01:30)
[2023-04-16] MEDS ORDERED: ACETAMINOPHEN 325 MG TABLET PO PRN ×2 (01:30→12:30)
[2023-04-16] MEDS ORDERED: HYDROCODONE/APAP 5/325MG TABLET PO PRN ×2 (01:30→12:30)
[2023-04-16 04:03] VITALS: BP 123/64; TEMP 98.4; O2SAT 98
[2023-04-16 07:25] LABS: BASOPHILS # (AUTO) 0.1 K/uL (0.0-0.2); BASOPHILS % (AUTO) 0.7 % (0.0-2.0); EOSINOPHILS # (AUTO) 0.1 K/uL (0.0-0.7); EOSINOPHILS % (AUTO) 0.6 % (0.0-6.0); HEMATOCRIT 37 % (33-45); HEMOGLOBIN 11.9 g/dL (11.5-14.8); LYMPHOCYTES # (AUTO) 1.8 K/uL (0.8-4.8); LYMPHOCYTES % (AUTO) 10.5 % (20.0-44.0); MEAN CORPUSCULAR HEMOGLOBIN 28 PG (26.0-33.0); MEAN CORPUSCULAR HGB CONC 32 g/dl (31.0-36.0); MEAN CORPUSCULAR VOLUME 88 fL (82-100); MONOCYTES # (AUTO) 0.7 K/uL (0.1-1.30); MONOCYTES % (AUTO) 4.4 % (2.0-12.0); NEUTROPHILS # (AUTO) 14.2 K/uL (1.8-8.9); NEUTROPHILS % (AUTO) 83.8 % (43.0-81.0); PLATELET COUNT (AUTO) 342 K/uL (150-450); RED BLOOD CELL COUNT(AUTO) 4.24 MIL/uL (4.0-5.2); RED CELL DISTRIBUTION WIDTH 15.3 % (11.5-15.0); WHITE BLOOD COUNT (AUTO) 16.9 K/uL (4.3-11.0)
[2023-04-16 07:31] LABS: POTASSIUM 3.5 mmol/L (3.5-5.1)
[2023-04-16 07:39] LABS: ALBUMIN 2.8 g/dL (3.4-5.0); BILIRUBIN,TOTAL 0.4 mg/dL (0.2-1.0); MAGNESIUM 1.9 mg/dL (1.8-2.4); TOTAL PROTEIN, SERUM 7.2 g/dL (6.4-8.2)
[2023-04-16] MEDS: PANTOPRAZOLE 40 MG TABLET.DR PO SCH (07:54)
[2023-04-16 08:00] VITALS: BP 124/62; TEMP 97.4; O2SAT 96
[2023-04-16] MEDS: MAGNESIUM OXIDE 400 MG TABLET PO SCH (08:22)
[2023-04-16] MEDS: FERROUS SULFATE (325 MG) 325 MG/TAB TABLET PO SCH (08:22)
[2023-04-16] MEDS: ACIDOPHILUS/BULGARICUS 1 EACH TAB.CHEW PO SCH ×2 (08:22→16:08)
[2023-04-16] MEDS: LETROZOLE 2.5 MG TABLET PO SCH (08:22)
[2023-04-16] MEDS ORDERED: HYDR-4209 PO (08:25)
[2023-04-16] MEDS ORDERED: ACET-868 PO (08:25)
[2023-04-16] MEDS ORDERED: CYPR4TAB44 PO (08:25)
[2023-04-16] MEDS ORDERED: LOSA100T31 PO (08:25)
[2023-04-16] MEDS ORDERED: APIX2.5T PO (08:25)
[2023-04-16] MEDS ORDERED: AMLO-213 PO (08:25)
[2023-04-16] MEDS ORDERED: APIXABAN 5 MG TABLET PO SCH (09:00)
[2023-04-16 12:00] VITALS: BP 115/55; TEMP 98.4; O2SAT 100
[2023-04-16 16:00] VITALS: BP 145/73; TEMP 97.4; TEMP 97.5; O2SAT 98
[2023-04-16] MEDS: APIXABAN 2.5 MG TABLET PO SCH (16:08)
[2023-04-16] MEDS: CYPROHEPTADINE HCL 4 MG TABLET PO SCH (16:09)
[2023-04-16 20:00] VITALS: BP 141/86; TEMP 98.6; O2SAT 94
[2023-04-17] VITALS: BP 127/81; TEMP 98.5; O2SAT 98
[2023-04-17] MEDS: CEFTRIAXONE 1 G in IV D5W 50 ML IV SCH (01:12)
[2023-04-17 04:00] VITALS: BP 135/65; TEMP 98.4; O2SAT 97
[2023-04-17 06:32] LABS: CREATININE 0.8 mg/dL (0.6-1.3); POTASSIUM 3.6 mmol/L (3.5-5.1)
[2023-04-17 06:33] LABS: BASOPHILS % (AUTO) 0.3 % (0.0-2.0); EOSINOPHILS # (AUTO) 0.1 K/uL (0.0-0.7); EOSINOPHILS % (AUTO) 1.2 % (0.0-6.0); HEMATOCRIT 37 % (33-45); HEMOGLOBIN 11.9 g/dL (11.5-14.8); LYMPHOCYTES # (AUTO) 1.5 K/uL (0.8-4.8); MEAN CORPUSCULAR HEMOGLOBIN 29 PG (26.0-33.0); MEAN CORPUSCULAR HGB CONC 33 g/dl (31.0-36.0); MEAN CORPUSCULAR VOLUME 88 fL (82-100); MONOCYTES # (AUTO) 0.5 K/uL (0.1-1.30); MONOCYTES % (AUTO) 4.7 % (2.0-12.0); NEUTROPHILS # (AUTO) 7.7 K/uL (1.8-8.9); NEUTROPHILS % (AUTO) 78.8 % (43.0-81.0); PLATELET COUNT (AUTO) 348 K/uL (150-450); RED BLOOD CELL COUNT(AUTO) 4.14 MIL/uL (4.0-5.2); RED CELL DISTRIBUTION WIDTH 15.3 % (11.5-15.0); WHITE BLOOD COUNT (AUTO) 9.7 K/uL (4.3-11.0)
[2023-04-17 08:00] VITALS: BP 126/83; TEMP 98.4; O2SAT 93
[2023-04-17] MEDS: FERROUS SULFATE (325 MG) 325 MG/TAB TABLET PO SCH (09:21)
[2023-04-17] MEDS: MAGNESIUM OXIDE 400 MG TABLET PO SCH (09:21)
[2023-04-17] MEDS: CYPROHEPTADINE HCL 4 MG TABLET PO SCH ×2 (09:22→16:07)
[2023-04-17] MEDS: LOSARTAN POTASSIUM 50 MG TABLET PO SCH (09:22)
[2023-04-17] MEDS: ACIDOPHILUS/BULGARICUS 1 EACH TAB.CHEW PO SCH ×2 (09:22→16:07)
[2023-04-17] MEDS: PANTOPRAZOLE 40 MG TABLET.DR PO SCH (09:22)
[2023-04-17] MEDS: LETROZOLE 2.5 MG TABLET PO SCH (09:22)
[2023-04-17] MEDS: AMLODIPINE BESYLATE 10 MG TABLET PO SCH (09:23)
[2023-04-17] MEDS: APIXABAN 2.5 MG TABLET PO SCH ×2 (09:23→16:08)
[2023-04-17 12:00] VITALS: BP 123/79; TEMP 98; O2SAT 97
[2023-04-17 16:00] VITALS: BP 123/69; TEMP 98.8; O2SAT 97
[2023-04-17 20:00] VITALS: BP 123/61; TEMP 97.3; O2SAT 97
[2023-04-18] VITALS: BP 126/79; TEMP 98; O2SAT 100
[2023-04-18] MEDS: CEFTRIAXONE 1 G in IV D5W 50 ML IV SCH ×2 (01:00→12:54)
[2023-04-18 04:00] VITALS: BP 136/81; TEMP 99.1; O2SAT 99
[2023-04-18 07:45] LABS: BASOPHILS % (AUTO) 0.4 % (0.0-2.0); EOSINOPHILS # (AUTO) 0.1 K/uL (0.0-0.7); EOSINOPHILS % (AUTO) 1.5 % (0.0-6.0); HEMATOCRIT 36 % (33-45); HEMOGLOBIN 11.8 g/dL (11.5-14.8); LYMPHOCYTES # (AUTO) 1.5 K/uL (0.8-4.8); LYMPHOCYTES % (AUTO) 20.5 % (20.0-44.0); MEAN CORPUSCULAR HEMOGLOBIN 28 PG (26.0-33.0); MEAN CORPUSCULAR HGB CONC 32 g/dl (31.0-36.0); MEAN CORPUSCULAR VOLUME 88 fL (82-100); MONOCYTES # (AUTO) 0.4 K/uL (0.1-1.30); NEUTROPHILS # (AUTO) 5.5 K/uL (1.8-8.9); NEUTROPHILS % (AUTO) 72.6 % (43.0-81.0); PLATELET COUNT (AUTO) 362 K/uL (150-450); RED BLOOD CELL COUNT(AUTO) 4.15 MIL/uL (4.0-5.2); RED CELL DISTRIBUTION WIDTH 15.4 % (11.5-15.0); WHITE BLOOD COUNT (AUTO) 7.5 K/uL (4.3-11.0)
[2023-04-18 08:00] VITALS: BP 117/75; TEMP 98.2; O2SAT 97
[2023-04-18 08:01] LABS: CALCIUM, SERUM 8.9 mg/dL (8.5-10.1); CREATININE 0.7 mg/dL (0.6-1.3); POTASSIUM 3.1 mmol/L (3.5-5.1)
[2023-04-18] MEDS: PANTOPRAZOLE 40 MG TABLET.DR PO SCH (08:08)
[2023-04-18] MEDS: LETROZOLE 2.5 MG TABLET PO SCH (08:49)
[2023-04-18] MEDS: CYPROHEPTADINE HCL 4 MG TABLET PO SCH ×2 (08:49→16:53)
[2023-04-18] MEDS: FERROUS SULFATE (325 MG) 325 MG/TAB TABLET PO SCH (08:49)
[2023-04-18] MEDS: ACIDOPHILUS/BULGARICUS 1 EACH TAB.CHEW PO SCH ×2 (08:50→16:52)
[2023-04-18] MEDS: MAGNESIUM OXIDE 400 MG TABLET PO SCH (08:50)
[2023-04-18] MEDS: LOSARTAN POTASSIUM 50 MG TABLET PO SCH (08:50)
[2023-04-18] MEDS: AMLODIPINE BESYLATE 10 MG TABLET PO SCH (08:51)
[2023-04-18] MEDS: APIXABAN 2.5 MG TABLET PO SCH ×2 (08:53→16:52)
[2023-04-18] MEDS ORDERED: CEFD300C3 PO (10:38)
[2023-04-18] MEDS ORDERED: CEFTRIAXONE 1 G VIAL IM SCH (11:00)
[2023-04-18] MEDS ORDERED: POTASSIUM CHLORIDE 20 MEQ TAB.PRT.SR PO ONE (11:00)
[2023-04-18 12:00] VITALS: BP 130/79; TEMP 98.4; O2SAT 96
[2023-04-18] MEDS ORDERED: CEFTRIAXONE 1 G VIAL IM PRN (13:02)
[2023-04-18 16:14] VITALS: BP 144/63; TEMP 98.9; O2SAT 97
[2023-04-18 20:00] VITALS: BP 122/75; TEMP 98.4; O2SAT 97
[2023-04-19] VITALS: BP 124/70; TEMP 98.4; O2SAT 97
[2023-04-19 04:19] VITALS: BP 130/65; TEMP 98.3; O2SAT 97
[2023-04-19] MEDS: PANTOPRAZOLE 40 MG TABLET.DR PO SCH (07:39)
[2023-04-19 08:00] VITALS: BP 132/81; TEMP 97.8; O2SAT 97
[2023-04-19] MEDS: ACIDOPHILUS/BULGARICUS 1 EACH TAB.CHEW PO SCH (08:31)
[2023-04-19] MEDS: FERROUS SULFATE (325 MG) 325 MG/TAB TABLET PO SCH (08:31)
[2023-04-19] MEDS: MAGNESIUM OXIDE 400 MG TABLET PO SCH (08:31)
[2023-04-19] MEDS: APIXABAN 2.5 MG TABLET PO SCH (08:33)
[2023-04-19] MEDS: AMLODIPINE BESYLATE 10 MG TABLET PO SCH (08:35)
[2023-04-19] MEDS: LOSARTAN POTASSIUM 50 MG TABLET PO SCH (08:35)
[2023-04-19] MEDS: LETROZOLE 2.5 MG TABLET PO SCH (08:36)
[2023-04-19] MEDS: CYPROHEPTADINE HCL 4 MG TABLET PO SCH (08:37)
[2023-04-19 12:00] VITALS: BP 132/81; TEMP 97.8; O2SAT 97
== END 2023-04-19 16:37 | DRG 689 ==
LOC: ER 22:08 → TELE1 04-16 02:03 → MEDSG1 04-18 14:20
PROVIDERS: ADMIT Internal Medicine; ATTEND Internal Medicine
DX: N39.0 Urinary tract infection, site not specified (principal); N17.0 Acute kidney failure with tubular necrosis; E87.20 Acidosis, unspecified; M84.48XA Pathological fracture, other site, initial encounter for fracture; I11.0 Hypertensive heart disease with heart failure; I50.9 Heart failure, unspecified; K83.8 Other specified diseases of biliary tract; E78.5 Hyperlipidemia, unspecified; G62.9 Polyneuropathy, unspecified; Z85.3 Personal history of malignant neoplasm of breast; M41.9 Scoliosis, unspecified; M19.90 Unspecified osteoarthritis, unspecified site; R26.9 Unspecified abnormalities of gait and mobility; Z90.13 Acquired absence of bilateral breasts and nipples; Z88.0 Allergy status to penicillin; Z88.2 Allergy status to sulfonamides; Z91.09 Other allergy status, other than to drugs and biological substances; Z79.01 Long term (current) use of anticoagulants; Z79.811 Long term (current) use of aromatase inhibitors; Z79.899 Other long term (current) drug therapy; Z86.718 Personal history of other venous thrombosis and embolism; E87.6 Hypokalemia; Z91.81 History of falling
CPT/HCPCS: 36415; 71045-TC; 76700-TC; 80048-TC; 80053-TC; 80076-TC; 81001; 83605-TC; 83735-TC; 84484-TC; 85025-TC; 87040-TC; 87081-TC; 87086-TC; 97110-TC; 97112-TC; 97530-TC; G0378; J0696; J7030; J7060

== ENCOUNTER 2024-07-03 23:18 | Emergency (ER) | payer BC ==
[~2024-07-03] VITALS: Ht 160 cm; Wt 47.2 kg
[~2024-07-03 23:18] MED LIST changes: +ACET-868 PO; -ACID1TAB4 PO; +AMLO-213 PO; +APIX2.5T PO; -APIX5TAB PO; +CEFD300C3 PO; -DOXY100C2 PO; -FERR325T23 PO; -HYDR-3976 PO; +HYDR-4209 PO; +LOSA100T31 PO; -LOSA1TAB15 PO; -MAGN400T30 PO; -POTA10TA10 PO
[2024-07-04 02:25] VITALS: BP 136/89; TEMP 98; O2SAT 99
== END 2024-07-04 02:25 ==
LOC: ER 23:19
DX: S00.83XA Contusion of other part of head, initial encounter (principal); I50.9 Heart failure, unspecified; E78.5 Hyperlipidemia, unspecified; M41.9 Scoliosis, unspecified; R51.9 Headache, unspecified; Z79.899 Other long term (current) drug therapy; Z79.811 Long term (current) use of aromatase inhibitors; Z79.01 Long term (current) use of anticoagulants; Z85.3 Personal history of malignant neoplasm of breast; Z88.0 Allergy status to penicillin; Z88.1 Allergy status to other antibiotic agents; Z88.2 Allergy status to sulfonamides; W01.0XXA Fall on same level from slipping, tripping and stumbling without subsequent striking against object, initial encounter; Y93.89 Activity, other specified; Y92.89 Other specified places as the place of occurrence of the external cause; Y99.8 Other external cause status
CPT/HCPCS: 70450-TC; 72125-TC